=== PATIENT | female | born 1990 | race Caucasian/White ===

== ENCOUNTER 2021-02-08 16:32 | Emergency (ER) | payer BC, MEDICAID, SELFPAY ==
[2021-02-08 16:48] VITALS: BP 128/70; PULSE 89; RESP 18; TEMP 36.6; O2SAT 99
[2021-02-08] MEDS: Ondansetron O.D.T. 4 MG TABEF PO (17:14)
--- NOTE | 2021-02-08 17:15 | ED.GENADUL_ITS ---
Discharge Plan Disposition Patient Disposition: HOME Condition: Stable Discharge Details Clinical Impression: Vomiting during Primary Care Provider: Jeanna Alvares ED Provider: Qiana Hernandez Home Meds and New Rx's Prescriptions: New ondansetron 4 mg tablet,disintegrating 4 mg PO TID PRN (Reason: nausea and vomiting) 4 Days Qty: 12 RF: 0 No Action ibuprofen 200 mg capsule 400 mg PO QID PRNRF: 0 COVID-19 vacc,mRNA(Moderna)-PF 100 mcg/0.5 mL suspension 0.5 ml IM ONCE Qty: 0.5 RF: 0 Aspirin/Acetaminophen/Caffeine [Excedrin Migraine Caplet] 1 EACH tablet 1 ea PO RF: 0 cetirizine-pseudoephedrine [Zyrtec-D] 1 EACH tablet extended release 12 hr 1 ea PO PRN RF: 0 Advil Cold and Sinus 1 EACH tablet 1 ea PO RF: 0 Discharge Instructions Instructions: Acute Nausea and Vomiting (ED) Additional Instructions: Take Zofran 3 times daily as needed for nausea vomiting approximately 20 to 30 minutes prior to ingesting any food or fluids. Sip on fluids slowly. Try lemon and raúl. Begin with a bland diet including crackers and/or rice. Stay away from dairy or anything fried fatty for the first 24 to 48 hours. Follow up with primary care provider in 3-5 days. Return to ED sooner if any worsening or concerns. Increase oral fluids. Referrals: Jeanna Alvares, NIA [Primary Care Provider] - Medical Decision Making 30-year-old female 26 weeks G2 para 1 presents to the ER with complaint of nausea vomiting which began over the last 24 hours. Patient states she been unable to keep anything down due to having an empty stomach. Denies any other associated symptoms no vaginal discharge bleeding, urinating denies any abdominal pain, no fever no diarrhea. At this time 4 mg Zofran ODT given, urinalysis ordered, patient given ice chips and instructed on slow use. Verbalized understanding. We will continue to observe and re-eval in 30 minutes. FHT: [id number]: Patient reevaluation, tolerating popsicle without difficulty has had some ice no further emesis noted. Patient states that she is feeling better. Discussed home care strict return given at length. We will send patient home with Zofran tablet. Instructed to follow-up with [facility] if further problems. HPI General Mode of arrival: ambulatory . Date/Time Provider Initiated Documentation: 02/08/21 16:32 . Limitations to Documentation: no limitations . Information obtained by: patient and RN notes reviewed . HPI Narrative: 30-year-old female 26 weeks G2 para 1 presents to the ER with complaint of nausea vomiting which began over the last 24 hours. Patient states she been unable to keep anything down due to having an empty stomach. Denies any other associated symptoms no vaginal discharge bleeding, urinating denies any abdominal pain, no fever no diarrhea. Related Data Home Medications Medication Instructions Recorded Confirmed Aspirin/Acetaminophen/Caffeine 1 ea PO 06/27/17 03/02/20 [Excedrin Migraine Caplet] cetirizine-pseudoephedrine 1 ea PO PRN 06/27/17 03/02/20 [Zyrtec-D] pseudoephedrine-ibuprofen [Advil 1 ea PO 09/15/17 03/02/20 Cold & Sinus Caplet] ibuprofen 200 mg capsule 400 mg PO QID PRN cap 08/14/18 03/02/20 ondansetron 4 mg PO TID PRN 4 Days #12 tab 02/08/21 Previous Rx's Medication Instructions Recorded ondansetron 4 mg PO TID PRN 4 Days #12 tab 02/08/21 Allergies Allergy/AdvReac Type Severity Reaction Status Date / Time No Known Allergies Allergy Unverified 03/02/20 08:17 General Stated Complaint: Nausea/Vomit/Diar MAGNOLIA: 3 Review of Systems All systems reviewed & are unremarkable except as noted in HPI and below Gastrointestinal Gastrointestinal: Reports nausea and Reports vomiting [facility] Medical History Chlamydia infection (07/23/17) Migraine, unspecified, not intractable, without status migrainosus (07/23/17) Missed (07/23/17) Oral contraceptive pill surveillance (10/01/17) 07/2017 OCPs initiated for contraception. No issues with migraine exacerbations Tobacco use disorder QUIT 12/2018 (when became ) Surgical History Dilation and curettage (07/24/17) Missed at 7 weeks [place], Dr. Lee Family History Mother Neoplasm Ovarian CA - survived Father No problems noted. Sister No problems noted. Sister No problems noted. Social History Smoking/Tobacco Use Status: Former Tobacco Use Quit Date: 12/31/18 Tobacco: How many years used: 9 Smoking risk assessment performed?: Yes Alcohol Intake: current Alcohol Intake frequency: holidays/special occasions only Drug use: Current Sobriety Substance use type: marijuana Caregiver/Support person: No Household members: significant other and children Housing: apartment Number of Children: 1 Communication Needs: Corrective Lenses Do you need help understanding health information?: Rarely current occupation: manager real estate at [employer] Pets and animals: Yes Pets and animals: dog(s) Sexually active: Yes Do you think of yourself as: straight/heterosexual Current gender identity: female What is your relationship status?: living with partner How often do you talk on the phone with friends or family?: three or more times per week How often do you get together with friends or relatives?: twice per week Do you belong to any clubs or organized social groups?: no Panel score (0-1 are the most socially isolated patients): 2 What type of physical activity do you participate in: walking Duration: 15-30 minutes/day Frequency: 3-4 times per week Lacey/Mu-Ism: None Special lacey needs: No Seatbelt use: always Helmet use: No Drive intox or ride w/intox sales driver: No Do you feel safe at home: Yes Do you feel safe in your relationship?: Yes Exam Narrative Exam Narrative: Constitutional: Alert and oriented x3. Appears stated age. Normal body habitus. Head: Normocephalic, no trauma. Eyes: Pupils PERRLA, Red reflex noted, EOM's intact. Eyelids symmetrical without lesions, discharge, or swelling. ENT: Bilateral TM's WNL, External ear normal to inspection, no mastoid TTP, sw elling, or erythema, Nasal turbinates WNL, no nasal discharge. Normal dentition, Posterior pharynx WNL, no exudate. Chest: RRR, Normal S1, S2, distal pulses intact. Resp: Lungs clear to auscultation bilaterally, no wheezes, rales, or rhonchi. Abdomen: Consistent with 26 gestation, nontender to palpation. Patient report she is feeling the baby move. No CVA tenderness. Musculoskeletal: Normal gait, 5/5 strength to all four extremities. Skin: No suspicious rashes or lesions. Capillary refill less than 2 sec. Neurologic: Cranial nerves II-XII intact. Alert and oriented x 3. DTR's intact. Hematologic/Lymphatic: No ecchymosis, no lymphadenopathy. Course Vital Signs Vital signs: Vital Signs Temperature 36.6 C 02/08/21 16:48 Pulse 89 02/08/21 16:48 Respiratory Rate 18 02/08/21 16:48 Blood Pressure 128/70 02/08/21 16:48 Pulse Oximetry 99 02/08/21 16:48 Temperature 36.6 C 02/08/21 16:48 Temperature Source Temporal Artery Scan 02/08/21 16:48 Pulse 89 02/08/21 16:48 Respiratory Rate 18 02/08/21 16:48 Respiratory Effort Non-Labored 02/08/21 16:54 Blood Pressure 128/70 02/08/21 16:48 Blood Pressure Position Sitting 02/08/21 16:48 Pulse Oximetry 99 02/08/21 16:48 Oxygen Delivery Method Room Air 02/08/21 16:48 Oxygen Flow Rate 0 02/08/21 16:48 Pain Level 3 02/08/21 16:48
[2021-02-08 17:29] LABS: Bilirubin Negative (Negative); Blood Negative (Negative); Clarity Clear (Clear); Glucose Negative (Negative); Ketones >=160 mg/dL (Negative); Leukocyte Esterase Negative (Negative); Nitrite Negative (Negative); Specific Gravity >= 1.030 (1.005-1.025); Urobilinogen 0.2 EU/dL (Up TO 0.2)
[2021-02-08 17:37] LABS: Bacteria Rare HPF (Negative); C & S Indicated? No; Crystals Negative HPF (Negative); Epithelial Cells Many HPF (Negative); Mucus Heavy (Negative); RBC 0-2 HPF (0-2); WBC Negative HPF (0-5)
[2021-02-08] MEDS: Ondansetron O.D.T. 4 MG TABEF, 3 TABS/BTL PO (18:12)
[2021-02-08 18:13] VITALS: BP 120/64; PULSE 80; RESP 18; TEMP 36.6; O2SAT 99
[2021-02-08 18:14] VITALS: BP 120/64; PULSE 80; RESP 18; TEMP 36.6; O2SAT 99
== END 2021-02-08 18:16 | disposition home or self-care (01) ==
PROVIDERS: Emergency Provider Registered Nurse Emergency; PCP Nurse Practitioner Family
DX: O21.8 Other vomiting complicating pregnancy (principal); Z3A.26 26 weeks gestation of pregnancy
CPT/HCPCS: 99283; 81003; 81015

== ENCOUNTER → 2023-12-15 02:44 | Outpatient (CLI) | payer SELFPAY ==
--- NOTE | 2023-12-15 07:45 | DI.MAMMO_ITS ---
Exam(s) US BREAST RT COMPLETE MG MAMMO DIAGNOSTIC BI EXAM: MG MAMMO DIAGNOSTIC BILATERAL AND COMPLETE RIGHT BREAST ULTRASOUND CLINICAL HISTORY: LUMP RT BREAST, 5:00,N63.10. TECHNIQUE: BOTH CC AND MLO mammographic images were obtained with 3D tomosynthesis technique and uti lizing computer aided detection (CAD). COMPLETE RIGHT BREAST ULTRASOUND WAS PERFORMED including all 4 quadrants as well as the retroareolar region and the right axilla. COMPARISON: None. This is a baseline diagnostic mammogram on a 33-year-old patient feels a right br east lump (5 o'clock position) for the past few months. FINDINGS: DIAGNOSTIC BILATERAL MAMMOGRAM: Fibroglandular tissue pattern is very dense, this decreasing the sensitivity of the mammogram for fin ding hidden underlying lesions. There are no CAD designations. There are no obvious spiculated masses nor malignant-appearing microcalcification groups in either br east. There is no significant architectural distortion nor skin thickening-retraction. COMPLETE RIGHT BREAST ULTRASOUND: At the 5 o'clock position there is a superficially located subtle solid lobulated nodular density heather suring 1.0 x 0.5 cm, this corresponding to her palpable lump. Exhibits neutral through transmission. This is located approximately 4 cm from the nipple. At the 4 o'clock central retroareolar region there is a well-defined solid nodule measuring 9 by 8 mm , exhibiting neutral through transmission. Slightly taller than wider. At the 10 o'clock position there is a wider than taller slightly lobulated solid nodule measuring 7 x 3 mm. Scanning of the right axilla is negative for adenopathy. IMPRESSION: 1. Very dense bilateral fibroglandular tissue on mammography which obscures the significant findings on ultrasound. 2. Right breast ultrasound reveals 3 solid findings, the finding described above at the 5 o'clock pos ition corresponding to her palpable lump. There also 2 other solid nodules in the right breast at the 4 o'clock and 10 o'clock positions. All 3 lesions require ultrasound-guided biopsy. 3. Another approach, given the density of her fibroglandular tissue would be to perform bilateral smiley ast MRI which may add specificity as to how many nodules are present in both breasts and which are re quiring biopsy. The patient was informed of the findings and follow-up recommendations by myself prior to leaving the department today. Also called referring physician's office report and recommendations given by myself to Dr. Rivera 2 o'clock p.m. BI-RADS Category 4 - Suspicious Abnormality: Biopsy should be considered Breast Density - Category D - Extremely dense Breast density Category C or D implies that the patient has dense breast tissue. Dense breast tissue can make it harder to find cancer on a mammogram. Dense breast tissue is also associated with an incr eased risk of breast cancer. This information about the result of the mammogram report was provided to the patient to raise their awareness. Use this report when you speak with the patient about their risks for breast cancer, which includes their family history. At that time, you may recommend additional screening tests (Ultrasoun d or MRI) as these tests may add significant information. A negative radiographic report should not delay biopsy if a dominant or clinically suspicious mass is present. Up to ten percent of cancers are not identified on mammography. A negative report may reinforce clinical impression. Adenosis and dense breasts may obscure an underlying neoplasm. False positive reports average 6 to 10%. Patient will receive a letter notifying them of these results.
== END ==
PROVIDERS: PCP Nurse Practitioner Family; Visit Provider Nurse Practitioner
DX: N63.10 Unspecified lump in the right breast, unspecified quadrant (principal); R92.341 Mammographic extreme density, right breast; R92.8 Other abnormal and inconclusive findings on diagnostic imaging of breast
CPT/HCPCS: 76642; 77062; 77066; G0279